=== PATIENT | male | born 1960 | race Caucasian/White ===

== ENCOUNTER 2018-10-30 05:26 | Observation (INO) | payer OTHER ==
[2018-10-30] MEDS ORDERED: Pantoprazole 40 MG VIAL ONE (05:42)
[2018-10-30] MEDS ORDERED: Ondansetron PF 4 MG/2 ML Vial ONE ×2 (05:47→15:39)
[2018-10-30 05:55] LABS: Hemoglobin 11.2 g/dL (14.0-18.0); Mean Corpuscular HGB CONC 33.8 g/dL (32.0-36.0); Mean Platelet Volume 6.4 fL (7.4-10.4); Platelet Count 223 thou/uL (130-400); RBC Distribution Width 12.7 % (11.5-14.5)
[2018-10-30 05:58] LABS: INR-International Normal Ratio 1.3; PTT 27.5 SEC (22.9-36.1); Prothrombin Time 16.2 SEC (12.0-14.7)
[2018-10-30 06:19] LABS: Band 3 % (5-11); Eosinophils 1 % (0-10); Lymphocytes 9 % (21-51); MDiff Complete? YES; Monocytes 15 % (0-10); Myelocyte 1 % (0-0); Neutrophil 71 % (42-75)
[2018-10-30 06:25] LABS: ALT (SGPT) 32 U/L (8-55); AST (SGOT) 50 U/L (5-34); Acetaminophen Less than 6.0 mcg/mL (10.0-30.0); Albumin 3.8 g/dL (3.5-5.0); Alcohol Less than 10 mg/dL (Less than 10); Alkaline Phosphatase 85 U/L (40-150); Anion Gap 20 mmol/L (10-20); BUN (Urea Nitrogen) 38 mg/dL (8.4-25.7); Bilirubin, Total 0.9 mg/dL (0.2-1.2); Calc. Creatinine Clearance 0 mL/min (70-130); Carbon Dioxide 23 mmol/L (22-29); Chloride 97 mmol/L (98-107); Estimated GFR-MDRD 62; Globulin 3.7 g/dL (2.4-3.5); Glucose 154 mg/dL (70-105); Potassium 4.2 mmol/L (3.5-5.1); Protein, Total 7.5 g/dL (6.0-8.3); Salicylate Less than 8.0 mg/dL (15.0-30.0); Sodium 136 mmol/L (136-145)
[2018-10-30 06:46] LABS: CKMB 2.2 ng/mL (0-6.6)
[2018-10-30] MEDS ORDERED: Ondansetron ODT 4 MG TAB PO PRN (08:56)
[2018-10-30] MEDS ORDERED: Calcium Carbonate 500 MG ChewTAB PO PRN (08:56)
[2018-10-30] MEDS ORDERED: Loratadine 10 MG TAB PO PRN (08:56)
[2018-10-30] MEDS ORDERED: HYDROcodone/Acetaminophen 5/325 mg Tablet PO PRN (08:56)
[2018-10-30] MEDS ORDERED: Bisacodyl 5 MG TAB PO PRN (08:56)
[2018-10-30] MEDS ORDERED: Diabetic Tussin 200 MG/10 ML UDCUP PO PRN (08:56)
[2018-10-30] MEDS ORDERED: Senokot S 8.6-50 MG TAB PO PRN (08:56)
[2018-10-30] MEDS ORDERED: Bisacodyl 10 MG SUPP PR PRN (08:56)
[2018-10-30] MEDS ORDERED: Artificial Tears 18 DROP/0.9 ML EA EYE PRN (08:56)
[2018-10-30] MEDS ORDERED: Loperamide HCl 2 MG CAP PO PRN (08:56)
[2018-10-30] MEDS ORDERED: Ondansetron PF 4 MG/2 ML Vial IVP PRN (08:56)
[2018-10-30] MEDS ORDERED: Acetaminophen 325 MG TAB PO PRN (08:56)
[2018-10-30] MEDS ORDERED: Cepastat Lozenges 1 LOZ PO PRN (08:56)
[2018-10-30] MEDS ORDERED: Eucerin (Mineral Oil/Petrolatum,White) 30 gm Jar TOP PRN (08:56)
[2018-10-30] MEDS ORDERED: Sodium Chloride 0.65% Nasal 44 ML BOT EA NARE PRN (08:56)
[2018-10-30] MEDS ORDERED: Zolpidem Tartrate 5 MG TAB PO PRN (08:56)
[2018-10-30] MEDS ORDERED: hydrALAZINE 20 MG/ML VIAL SLOW IVP PRN (08:56)
[2018-10-30] MEDS ORDERED: Pantoprazole 40 MG VIAL IVP SCH (09:00)
[2018-10-30] MEDS ORDERED: Lorazepam 2 MG/ML VIAL SLOW IVP PRN (09:02)
[2018-10-30 09:20] VITALS: BMI 25.9
[2018-10-30] MEDS: Nicotine 21 MG PATCH TD SCH (10:38)
[2018-10-30] MEDS: Multivitamins, Adult 10 ML, Folic Acid 1 MG, Thiamine HCl 100 MG in Dextrose 5 %-0.45 %... IV SCH (10:38)
--- NOTE | 2018-10-30 11:51 | HP ---
PRIMARY CARE PHYSICIAN: [facility]. REASON FOR ADMISSION: Acute upper GI bleed. HISTORY OF PRESENT ILLNESS: A 58-year-old male, who has underlying history of alcoholism. He drinks almost 12 beers everyday basis. He also smokes about 1-1/2 packs every day. 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 Yesterday night, while at work, he was drinking beer, and he was having vomiting of blood. Even though he was having vomiting of blood, he keeps continue to drink alcohol, and each time, he was having coffee-grounds emesis and subsequently, he had black tarry stool. He was feeling dizzy and lightheaded. He was feeling weak. The patient also had similar episode in the past, which he attributed to be due to bleeding from sinus and mouth. He denies any abdominal distention. He denies any fever or chills. He denies any fresh blood in the vomitus as well as fresh blood in the rectum. He denies any loss of consciousness. The patient never had any upper or lower endoscopic evaluation. The patient does report that he has family history of gastric cancer to his mother in her 50s. The patient took aspirin yesterday when he was having abdominal discomfort. He is not taking NSAID chronically, but he smokes marijuana every day. He denies any weight loss. REVIEW OF SYSTEMS: CONSTITUTIONAL: Negative for weight loss or gain, ability to conduct usual activities. SKIN: Negative for rash, itching. EYES: Negative for double vision, pain. ENT/MOUTH: Negative for nose bleeding, neck stiffness, pain, tenderness. CARDIOVASCULAR: Negative for palpitations, dyspnea on exertion, orthopnea. RESPIRATORY: Negative for shortness of breath, wheezing, cough, hemoptysis, fever or night sweats. GASTROINTESTINAL: Negative for poor appetite, abdominal pain, heartburn, nausea, vomiting, constipation, or diarrhea. GENITOURINARY: Negative for urgency, frequency, dysuria, nocturia. MUSCULOSKELETAL: Negative for pain, swelling. NEUROLOGIC/PSYCHIATRIC: Negative for anxiety, depression. ALLERGY/IMMUNOLOGIC: Negative for skin rash, bleeding tendency. Please see my HPI for pertinent positives and negative. All other review of systems reviewed and negative except as mentioned in HPI. PAST MEDICAL HISTORY: Alcoholism, chronic anemia, history of prostatitis, and history of gingivitis. PAST SURGICAL HISTORY: Tonsillectomy. PAST PSYCHIATRIC HISTORY: Anxiety, depression, and bipolar disorder. SOCIAL HISTORY: The patient drinks 12 beers every day. He smokes 1-1/2 packs every day. He also abuses marijuana. FAMILY HISTORY: Mother had a gastric cancer in her 50s. No family history of coronary artery disease or stroke. ALLERGIES: NO KNOWN DRUG ALLERGIES. CURRENT HOME MEDICATIONS: The patient is not taking any prescribed or non-prescribed medication. EMERGENCY ROOM COURSE: The patient is given Protonix, Zofran, and IV fluid. PHYSICAL EXAMINATION: VITAL SIGNS: Currently, blood pressure of 96/67, pulse 120, respiratory rate 18, temperature 99.0, and saturation 100% on room air. Weight 65.7 kg. GENERAL: The patient is currently alert and awake, in no obvious acute distress. HEENT: Head; normocephalic and atraumatic. Eyes; pupils are round and reactive to light. Extraocular muscle intact. ENT; oropharynx within normal limits. Moist mucous membranes. No oral lesion. No pharyngeal erythema. No exudate. Pale mucous membranes. NECK: Supple. No JVD. No thyromegaly. No carotid bruit. LUNGS: Clear to auscultation without any rhonchi or rales. CARDIAC: S1 and S2, regular without any murmur. ABDOMEN: Soft. Discomfort noted in the epigastric region. No peritoneal sign. No guarding. No rigidity. No rebound. RECTAL: Done in the emergency room showed melenic stool. BACK: Unremarkable. No CVA tenderness. EXTREMITIES: Upper extremities; passive movement of all joints is normal. Lower extremities, no edema. Good distal pulsation. SKIN: No skin rash. HEMATOLOGICAL SYSTEM: No lymphadenopathy. PSYCHIATRIC: Normal affect. SIGNIFICANT LABORATORY DATA: EKG showing normal sinus rhythm, within normal limit. CBC; WBC 11.0, hemoglobin 11.2, MCV 104, and platelet 223. INR 1.3. BMP; sodium 136, potassium 4.2, chloride 97, carbon dioxide 23, BUN 38, creatinine 1.20, glucose 154, and calcium 10.0. LFT; AST 50, ALT 32, alkaline phosphatase 85, CK-MB 2.2, troponin I 0.085, then 0.080. Serum drug levels negative. Stool for occult blood positive. ASSESSMENT AND PLAN: 1. Acute upper gastrointestinal bleed. The patient has coffee-grounds emesis and black tarry stool. He has significant alcohol abuse history suspecting alcoholic gastritis versus Roz-Pena tear versus peptic ulcer disease. At this point, the patient will be treated with Protonix 40 mg IV b.i.d. We will keep him n.p.o., and we will consult auctioneer art. The patient will need upper endoscopic evaluation. The patient is given counseling to avoid NSAID and alcohol abuse as well as smoking abuse. We will monitor H and H today and tomorrow. We will repeat CBC. 2. Alcoholism. The patient has abnormal LFT. We will do abdominal ultrasound to rule out any cirrhotic liver. We will also start banana bag 125 mL/h. We will check magnesium and phosphorus along with routine labs tomorrow. We will watch for any withdrawal symptoms. 3. Tobacco and alcohol abuse. We will start banana bag while in the hospital. Upon discharge, we will prescribe folic acid, vitamin B12, and thiamine. We will also provide nicotine patch while in hospital. Counseling is given to avoid tobacco and alcohol product. 4. Elevated troponin, likely due to demand ischemia. We will do serial cardiac enzyme x3 and monitor on telemetry floor. The patient is not a candidate for any aspirin therapy because of bleeding. 5. Macrocytic anemia, likely due to alcohol abuse. We will start folic acid and vitamin B12 therapy upon discharge. 6. Deep venous thrombosis prophylaxis, SCD boots only. No Lovenox because of gastrointestinal bleed. 7. Gastrointestinal prophylaxis, Protonix 40 mg IV b.i.d. CODE STATUS: The patient is full code. The patient does not have any surrogate decision maker. DISPOSITION PLAN: Based on clinical course, we are expecting the patient's stay in hospital 24 to 48 hours. At this point, we have started on observation status, but if needs to be changed, then we will change his status accordingly. Plan of care discussed with the patient in detail. Job ID: [id number]
--- NOTE | 2018-10-30 11:58 | ULT ---
RIGHT UPPER QUADRANT ULTRASOUND: 10/30/2018 HISTORY: Alcoholism. COMPARISON: None. TECHNIQUE: Multiplanar osullivan-scale sonographic imaging of the right upper quadrant is provided. FINDINGS: The imaged pancreas is unremarkable; however, the tail and head of the pancreas are obscured by bowel gas. The hepatic parenchyma is heterogeneous and echogenic. No focal liver lesion is seen. There is subtle irregularity involving the peripheral contour of the liver, which could suggest cirrhotic c hange. The right kidney measures 10.2 cm in craniocaudal dimension and demonstrates no evidence for stone, h ydronephrosis, or mass lesion. The common bile duct measures 3 mm, within normal limits. No gallbla dder wall thickening or pericholecystic fluid. No gallstones. The sonographic Ny sign is negati ve. IMPRESSION: Heterogeneity of the hepatic parenchyma, which may signify cirrhotic change. This could be better as sessed via CT or MRI. No acute findings are noted. POS: CR
[2018-10-30 12:10] LABS: Hemoglobin 9.3 g/dL (14.0-18.0)
[2018-10-30 12:32] LABS: Troponin I 0.054 ng/mL (< 0.028)
--- NOTE | 2018-10-30 15:20 | CON ---
DATE OF CONSULTATION: 10/30/2018 REASON: Vomiting blood. HISTORY OF PRESENT ILLNESS: Mr. Shea is a 58-year-old man who had sudden onset of blackish emesis at 7 p.m. last night. He continues to have 5 further episode of black emesis. He denies having seen any red blood. At 7 o'clock this morning, he did have black tarry stools. He did have a brief episode of upper epigastric discomfort. However, there is no prolonged abdominal pain. He denies having any lightheadedness, dizziness, or orthostatic symptoms. He denies having history of any peptic ulcer disease before. There is no history of NSAID usage. He does consume up to 15 beers daily. He takes occasional aspirin for headaches. Currently, his vitals are stable. He does not have any other GI complaints. PAST MEDICAL HISTORY: 1. No underlying medical illness, denies high blood pressure, diabetes, or heart disease. 2. Status post tonsillectomy. ALLERGIES: NONE. MEDICATIONS: At home, no prescription medication. SOCIAL HISTORY: The patient is single. 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 He consumes up to 15 beers a day for the last 6 years. He does smoke a pack and a half cigarettes daily. FAMILY HISTORY: Mother with gastric cancer at the age of 57. No other liver disease or GI problem. REVIEW OF SYSTEMS: A 10-point review of systems did not show any other pertinent positives or negatives. PHYSICAL EXAMINATION: VITAL SIGNS: Temperature is 99.3, blood pressure 135/65, and pulse of 94. GENERAL: He is alert, conversant, no distress. HEENT: Shows anicteric sclerae. Oropharynx clear, but poor dentition. NECK: Supple. CV: Shows normal S1, S2. Regular rate and rhythm. CHEST: Shows breath sounds. ABDOMEN: Protuberant, but no obvious fluid wave. There is no palpable mass or organomegaly. He has active bowel sounds. EXTREMITIES: Show no edema. LABORATORY: WBCs 11.0; hemoglobin 11.2 at 5 o'clock this morning, now at 9.3; and platelet count of 223. Sodium 136, potassium 4.2, chloride 97, CO2 of 23, creatinine 1.20, BUN of 38, bilirubin 0.9, AST of 50, ALT of 32, alkaline phosphatase 85. INR of 1.3, PTT of 27.5. DIAGNOSTIC DATA: Abdominal ultrasound performed, showed heterogeneous parenchyma and subtle irregularity involving the surface contour of the liver suggesting possible cirrhosis. No ascites. ASSESSMENT: The patient presented with evidence of upper gastrointestinal bleed characterized as coffee-ground emesis and melenic stools. Blood count does show a drop in his hemoglobin, but he remains hemodynamically stable. The patient does have history of heavy alcohol consumption with ultrasound, suggesting possible cirrhosis. Certainly, variceal bleeding is in the differential including peptic ulcer disease or Roz-Pena tear. RECOMMENDATIONS: 1. Continue with pantoprazole. 2. Diagnostic upper endoscopy to elucidate source of bleeding control if necessary. 3. Further recommendation pending endoscopic finding. Job ID: [id number]
[2018-10-30] MEDS ORDERED: PHENYLEPHRINE-NS 100 MCG/ML 10 ML SYRINGE ONE (15:39)
[2018-10-30] MEDS ORDERED: Lidocaine 1% PF 5 ML VIAL ONE (15:39)
[2018-10-30] MEDS ORDERED: PROPOFOL 200 MG/20 ML VIAL ONE (15:39)
--- NOTE | 2018-10-30 22:54 | OP ---
DATE OF PROCEDURE: 10/30/2018 PROCEDURE PERFORMED: Esophagogastroduodenoscopy. PREMEDICATION: Given by Anesthesiology Department. PREPROCEDURE DIAGNOSIS: History of coffee-grounds emesis and melena. POSTPROCEDURE DIAGNOSES: 1. A 0.5 cm Roz-Pena tear with clean crater, no bleeding. 2. Portal gastropathy. 3. Grade 1 lower esophageal varices with no stigmata of bleeding. DESCRIPTION OF PROCEDURE: Written consents were obtained prior to procedure. After adequate sedation, forward-viewing endoscope was advanced down the stomach under direct vision to the second portion of duodenum. The duodenum and the bulb appeared normal. The pylorus was patent. The gastric antrum, body, fundus, and cardia all appeared normal. There was diffuse hypertensive portal gastropathy seen. Retroflexion was normal without any gastric varices. There was no source of bleeding seen in the stomach. There was a green bile present. The GE junction was located at 40 cm. There was a less than 1 cm Roz-Pena tear without any active bleeding seen. There was no adherent clot or any vessels seen. There was grade 1 esophageal varices that flattened with insufflation. There was no stigmata of variceal bleeding. The stomach was then decompressed, the instrument was then fully removed. The patient tolerated the procedure well. ASSESSMENT: 1. Healing short Roz-Pena tear, GE junction without any evidence of bleeding. 2. Portal gastropathy with grade 1 esophageal varices without stigmata of bleeding suggestive of cirrhosis. RECOMMENDATION: 1. Resume diet. 2. Nadolol 40 mg p.o. daily, titrate to heart rate. 3. The patient can be discharged to home in a.m. with outpatient followup if he continues to do well. Job ID: [id number]
[2018-10-31 05:59] LABS: ALT (SGPT) 53 U/L (8-55); AST (SGOT) 93 U/L (5-34); Albumin 3.1 g/dL (3.5-5.0); Alkaline Phosphatase 61 U/L (40-150); Anion Gap 11 mmol/L (10-20); BUN (Urea Nitrogen) 18 mg/dL (8.4-25.7); Bilirubin, Total 0.7 mg/dL (0.2-1.2); Calc. Creatinine Clearance 101 mL/min (70-130); Calcium 8.7 mg/dL (7.8-10.44); Carbon Dioxide 23 mmol/L (22-29); Chloride 108 mmol/L (98-107); Estimated GFR-MDRD Greater than 90; Globulin 2.8 g/dL (2.4-3.5); Glucose 104 mg/dL (70-105); Potassium 4.1 mmol/L (3.5-5.1); Protein, Total 5.9 g/dL (6.0-8.3); Sodium 138 mmol/L (136-145)
[2018-10-31 06:16] LABS: HBCM Index 0.05 S/CO (0-0.79); HBSAg Index 0.28 S/CO (0-0.99); Hep A IgM AB Non-Reactive (NonReactive); Hep A IgM S/CO 0.09 S/CO (0-0.79); Hep B Surf Ag Non-Reactive S/CO (NonReactive); Hep C IgG Ab Non-Reactive (NonReactive); Hep C Index 0.21 S/CO (0-0.79); Hepatitis B Core IgM Abs Non-Reactive (NonReactive)
[2018-10-31 06:48] LABS: Mean Corpuscular HGB CONC 33.5 g/dL (32.0-36.0); Mean Corpuscular Hemoglobin 36.2 pg (27.0-31.0); Platelet Count 156 thou/uL (130-400); RBC Distribution Width 12.9 % (11.5-14.5); Red Blood Cell (RBC) Count 2.48 mill/uL (4.70-6.10)
[2018-10-31 06:58] LABS: Band 4 % (5-11); Eosinophils 3 % (0-10); Lymphocytes 28 % (21-51); Macrocytosis SLIGHT = 6-15 cells (100X) (0-5/hpf); Monocytes 13 % (0-10); Neutrophil 52 % (42-75)
[2018-10-31 06:59] LABS: MDiff Complete? YES
[2018-10-31] MEDS: Multivitamins, Adult 10 ML, Folic Acid 1 MG, Thiamine HCl 100 MG in Dextrose 5 %-0.45 %... IV SCH (08:59)
[2018-10-31] MEDS ORDERED: Nadolol 40 MG TAB PO SCH (09:00)
[2018-10-31] MEDS: Nicotine 21 MG PATCH TD SCH (09:02)
[2018-10-31 09:12] VITALS: BP 102/58; TEMP 98.1
--- NOTE | 2018-10-31 11:48 | DIS ---
DATE OF ADMISSION: 10/30/2018 DATE OF DISCHARGE: 10/31/2018 PRIMARY CARE PHYSICIAN: [facility] Call admission. DISCHARGE DISPOSITION: Home. PRIMARY DISCHARGE DIAGNOSES: 1. Acute upper GI bleed. 2. Anemia due to acute blood loss. 3. Demand ischemia. 4. Portal hypertensive gastropathy. 5. New diagnosis of alcoholic cirrhosis of liver. SECONDARY DISCHARGE DIAGNOSES: 1. Alcoholism. 2. Tobacco abuse. 3. Cannabis abuse. PRIMARY PROCEDURE/OPERATION: Upper endoscopy showed Roz-Pena tear and portal hypertensive gastropathy. RADIOLOGICAL INVESTIGATION: Ultrasound showed cirrhotic liver. SIGNIFICANT LABORATORY DATA: WBC 9.0, hemoglobin 9.0, platelet 156. INR 1.3. Sodium 138, creatinine 0.83, troponin 0.054, AST 93. Serum drug screen negative. Hepatitis profile negative. Stool for occult blood positive. DISCHARGE MEDICATION: 1. Folic acid 1 mg p.o. daily. 2. Vitamin B12 1000 mcg p.o. daily. 3. Multivitamin one tablet p.o. daily. 4. Thiamine 100 mg p.o. daily. 5. Protonix 40 mg p.o. daily. 6. Corgard 40 mg p.o. daily. CONTRAINDICATION: None. CODE STATUS: Full code. INPATIENT CONSULT: Dr. Ford was consulted while in hospital, who did upper endoscopy. TEST RESULTS PENDING ON DISCHARGE: None. ALLERGIES: NO KNOWN DRUG ALLERGIES. DISCHARGE PLAN: Posthospital, the patient will follow up with primary care physician and Dr. Ford as instructed. HOSPITAL COURSE: A 58-year-old male, who was admitted by me yesterday. Please see my HPI for further details. He was having recurrent and several episodes of small amount of blood, coffee-ground in vomiting, and black tarry stool. He was hemodynamically stable on admission. We admitted as observation status. We consulted desk interviewer and they did upper endoscopy and found with Roz-Pena tear as well as portal hypertensive gastropathy. While in hospital, we provided banana bag and his H and H remained overall okay. He did not require any blood transfusion. We provided the patient education about avoidance of alcohol, tobacco, and cannabis abuse. Healthy lifestyle measure discussed with the patient. His troponin was elevated, which was related to demand ischemia. His ultrasound is consistent with early-onset alcoholic cirrhosis and that is why we started Corgard on discharge. The patient is seen and examined at bedside today. All review of systems reviewed with him and are negative. His vitals are stable. His examination is normal. Job ID: [id number]
--- NOTE | 2018-10-31 15:00 | PRG ---
DATE OF SERVICE: 10/31/2018 SUBJECTIVE: The patient feels fine. He denies any nausea, vomiting, or abdominal pain. No evidence of bleeding overnight. PHYSICAL EXAMINATION: VITAL SIGNS: Temperature is 98.1, blood pressure 102/58, pulse of 80. GENERAL: He is alert, sitting up in bed, conversant, in no distress. HEENT: Shows anicteric sclerae. Oropharynx clear. NECK: Supple. CV: Shows normal S1, S2. Regular rate and rhythm. CHEST: Shows a breath sounds. ABDOMEN: Soft, mildly protuberant, but no tympany or distention. He has active bowel sounds. Nontender. EXTREMITIES: Shows no edema. LABORATORY DATA: WBC is 9.0, hemoglobin 9.0, and platelet count of 156. Electrolytes within normal range. Creatinine 0.8, bilirubin is 0.7, AST of 93, ALT of 53. Hepatitis B and hepatitis C antibody negative. ASSESSMENT: 1. Cirrhosis by ultrasound morphology and portal hypertensive changes on EGD. Alcohol induces the most likely etiology. 2. Portal hypertension with grade 1 esophageal varices noted, started on beta meg. 3. Status post upper gastrointestinal bleed from small Roz-Pena tear. RECOMMENDATIONS: 1. The patient can be discharged to home. 2. Continue nadolol 40 mg p.o. daily. 3. Follow up in GI clinic in 1 month. Job ID: [id number]
[2018-11-01] MEDS ORDERED: Nadolol 40 MG TAB PO SCH (09:00)
== END 2018-10-31 11:34 | disposition home or self-care (01) ==
LOC: ERS 05:26 → 2SW 08:34
PROVIDERS: ADMIT Hospitalist; ATTEND Hospitalist
PROC: 0DJ08ZZ Inspection of Upper Intestinal Tract, Via Natural or Artificial Opening Endoscopic (ICD-10-PCS; principal; 2018-10-31)
DX: K22.6 Gastro-esophageal laceration-hemorrhage syndrome (principal); D62 Acute posthemorrhagic anemia; K70.30 Alcoholic cirrhosis of liver without ascites; I85.10 Secondary esophageal varices without bleeding; K31.89 Other diseases of stomach and duodenum; I24.8 Other forms of acute ischemic heart disease; K76.6 Portal hypertension; F17.290 Nicotine dependence, other tobacco product, uncomplicated
CPT/HCPCS: 36415; 76705; 80053; 80074; 80307; 82274; 82553; 84484; 85025; 85610; 85730; 86850; 86900; 86901; 93005; 96361; 96365; 96366; 96374; 96375; 96376; C9113; G0378; J2001; J2405; J2704; J3411; J7042

== ENCOUNTER 2020-02-19 03:51 | Emergency (ER) | payer OTHER ==
[2020-02-19 04:39] LABS: INR-International Normal Ratio 1.4; PTT 31.5 sec (22.9-36.1); Prothrombin Time 16.7 sec (12.0-14.7)
[2020-02-19 04:46] LABS: Bacteria/HPF None Seen HPF (None Seen); Bilirubin Negative (Negative); Blood, Urine Negative (Negative); Clarity Clear (Clear); Glucose, Urine (Dipstick) Normal (Negative); Leukocyte Negative Leu/uL (Negative); Nitrite Negative (Negative); Protein, Urine (Dipstick) 30 mg/dL (Neg-Trace); RBC/HPF 0-3 HPF (0-3); WBC/HPF 0-3 HPF (0-3)
[2020-02-19 04:52] LABS: ALT (SGPT) 21 U/L (8-55); AST (SGOT) 53 U/L (5-34); Albumin 3.9 g/dL (3.5-5.0); Alkaline Phosphatase 130 U/L (40-110); Anion Gap 13 mmol/L (10-20); BUN (Urea Nitrogen) 16 mg/dL (8.4-25.7); Bilirubin, Total 1.2 mg/dL (0.2-1.2); Calc. Creatinine Clearance 0 mL/min (70-130); Calcium 9.1 mg/dL (7.8-10.44); Carbon Dioxide 28 mmol/L (22-29); Chloride 102 mmol/L (98-107); Estimated GFR-MDRD 84; Globulin 4.7 g/dL (2.4-3.5); Glucose 137 mg/dL (70-105); Lipase 15 U/L (8-78); Potassium 3.9 mmol/L (3.5-5.1); Protein, Total 8.6 g/dL (6.0-8.3); Sodium 139 mmol/L (136-145)
[2020-02-19 05:12] LABS: Hemoglobin 11.8 g/dL (14.0-18.0); Mean Corpuscular HGB CONC 32.3 g/dL (32.0-36.0); Mean Corpuscular Hemoglobin 31.4 pg (27.0-31.0); Mean Corpuscular Volume 97.2 fL (78.0-98.0); Mean Platelet Volume 6.9 fL (7.4-10.4); Platelet Count 181 thou/uL (130-400); RBC Distribution Width 14.2 % (11.5-14.5); Red Blood Cell (RBC) Count 3.76 mill/uL (4.70-6.10); White Blood Cell (WBC) Count 7.4 thou/uL (4.8-10.8)
[2020-02-19 05:32] LABS: Band 15 % (5-11); Lymphocytes 15 % (21-51); MDiff Complete? YES; Monocytes 18 % (0-10); Neutrophil 52 % (42-75)
[2020-02-19] MEDS ORDERED: Pantoprazole 40 MG VIAL ONE (05:45)
--- NOTE | 2020-02-19 07:31 | RAD ---
Exam: Chest one view HISTORY:Hematemesis Comparison: None FINDINGS: Cardiac silhouette: Normal Aorta: Atherosclerosis Pulmonary vessels: Normal Costophrenic angles: Clear LUNGS: No masses or consolidation. Pneumothorax: None Osseous abnormalities: None IMPRESSION: No acute cardiopulmonary process.
--- NOTE | 2020-02-19 07:53 | CT ---
PRELIMINARY REPORT/[facility]/EMERGENCY AFTER HOURS PROCEDURE EXAM: CT Abdomen and Pelvis with Intravenous Contrast CLINICAL HISTORY: PT REPORTS VOMITING BLOOD SINCE LAST NIGHT. PT REPORTS 3 EPISODES OF BLACK HEMATEME SIS. PT REPORTS THINKING THAT IT WAS CAUSED BY HIM TAKING TYLENOL AND IBUPROFEN. PT REPORTS MILD ABD PAIN, BLACK DIARRHEA, AND HEADACHE. TECHNIQUE: Axial computed tomography images of the abdomen and pelvis with intravenous contrast. CONTRAST: With; ISOVUE 370,100mL COMPARISON: None provided. FINDINGS: LUNG BASES: No basilar airspace consolidation or pleural effusion. LIVER: Cirrhotic.. GALLBLADDER AND BILE DUCTS: Unremarkable. No calcified stone. No ductal dilation. PANCREAS: Unremarkable. SPLEEN: Unremarkable. ADRENAL GLANDS: Unremarkable. KIDNEYS, URETERS, AND BLADDER: Unremarkable. No hydronephrosis or nephrolithiasis. No ureteral or eros dder calculi. STOMACH AND BOWEL: Abnormal thickening of the ascending and transverse colon as well as the rectum. A reas of small bowel thickening also noted. APPENDIX: No CT evidence for appendicitis. PERITONEUM: Hypervascular mesentery, mild free fluid in the right hemiabdomen. No free air. LYMPH NODES: No lymphadenopathy. REPRODUCTIVE: Unremarkable as visualized. VASCULATURE: No aortic aneurysm. BONES: No fracture or suspicious osseous abnormality. ABDOMINAL WALL AND SOFT TISSUES: Unremarkable. IMPRESSION: Abnormal thickening of the ascending and transverse colon as well as the rectum. Small deysi wel involvment also noted. Considerations include infectious versus inflammatory (such as Crohn's/ UC ) colitis. Cirrhosis, mild ascites. ELECTRONICALLY SIGNED BY: Fiorella Valladares MD Feb 19, 2020 5:13:27 AM CDT FINAL REPORT EMERGENT AFTER HOURS CT OF THE ABDOMEN AND PELVIS WITH CONTRAST: FINDINGS/IMPRESSION: I agree with the findings and impression given in the preliminary report per [facility] physici an. There is apparent diffuse thickening along the colon. However, the colon is a decompressed stat e and this could be artifactual. There is stranding change in the root of the mesentery extending in to the right lower quadrant of the abdomen. This inflammatory change could be secondary to a colitis /enteritis. POS: EAA
[2020-02-19] MEDS ORDERED: Iopamidol-370 76% 500 ML 1 ML ONE (13:01)
== END 2020-02-19 06:00 | disposition home or self-care (01) ==
LOC: ERS 03:51
DX: K29.71 Gastritis, unspecified, with bleeding (principal); F17.210 Nicotine dependence, cigarettes, uncomplicated
CPT/HCPCS: 71045; 74177; 80053; 81003; 81015; 83690; 85025; 85610; 85730; 96374; C9113; Q9967

== ENCOUNTER 2022-09-28 11:13 | Observation (INO) | payer SELFPAY ==
[2022-09-28 13:10] LABS: Hemoglobin 14.9 g/dL (14.0-18.0); Mean Corpuscular HGB CONC 32.1 g/dL (32.0-36.0); Mean Corpuscular Hemoglobin 31.1 pg (27.0-31.0); Mean Corpuscular Volume 96.9 fl (78.0-98.0); Mean Platelet Volume 6.4 fL (7.4-10.4); Platelet Count 273 10x3/uL (130-400); RBC Distribution Width 13.2 % (11.5-14.5); White Blood Cell (WBC) Count 7.7 10x3/uL (4.8-10.8)
[2022-09-28 13:26] LABS: Band 3 % (5-11); Lymphocytes 16 % (21-51); MDiff Complete? YES; Monocytes 15 % (0-10); Neutrophil 65 % (42-75); Platelet Morphology Comment Appears Adequate; RBC Morphology Normal
[2022-09-28 13:31] LABS: Bacteria/HPF None Seen HPF (None Seen); Bilirubin Negative (Negative); Blood, Urine Negative (Negative); Clarity Clear (Clear); Glucose, Urine (Dipstick) Normal (Negative); Ketone, Urine Negative (Negative); Leukocyte 75 Leu/uL (Negative); Nitrite Negative (Negative); Protein, Urine (Dipstick) Negative (Neg-Trace); RBC/HPF 0-3 HPF (0-3); Specific Gravity, Urine 1.015 (1.002-1.036); Squamous Epithelial 0-3 HPF (0-3); Urobilinogen 6 mg/dL (Less than 2); WBC/HPF 0-3 HPF (0-3); pH, Urine 6.5 (5.0-9.0)
[2022-09-28 13:33] LABS: ALT (SGPT) 13 U/L (8-55); AST (SGOT) 28 U/L (5-34); Albumin 3.4 g/dL (3.4-4.8); Alkaline Phosphatase 136 U/L (40-110); Anion Gap 10 mmol/L (10-20); BUN (Urea Nitrogen) 9 mg/dL (8.4-25.7); Bilirubin, Total 0.8 mg/dL (0.2-1.2); Calc. Creatinine Clearance 0 mL/min (70-130); Calcium 9.2 mg/dL (7.8-10.44); Carbon Dioxide 27 mmol/L (23-31); Chloride 105 mmol/L (98-107); Estimated GFR 102; Globulin 4.7 g/dL (2.4-3.5); Glucose 103 mg/dL (80-115); Lipase 24 U/L (8-78); Potassium 4.7 mmol/L (3.5-5.1); Protein, Total 8.1 g/dL (5.8-8.1); Sodium 137 mmol/L (136-145)
[2022-09-28] MEDS ORDERED: Iopamidol-370 76% 500 ML 1 ML ONE (15:11)
[2022-09-28] MEDS ORDERED: Lidocaine 1% w/Epinephrine 1:100K 20 ML VIAL ONE (16:41)
[2022-09-28] MEDS ORDERED: Acetaminophen 325 MG TAB PO PRN (17:22)
[2022-09-28] MEDS ORDERED: Ondansetron PF 4 MG/2 ML Vial IVP PRN (17:22)
[2022-09-28] MEDS ORDERED: Ondansetron ODT 4 MG TAB PO PRN ×2 (17:22→17:27)
[2022-09-28] MEDS ORDERED: Lorazepam 1 MG TAB PO PRN (17:27)
[2022-09-28] MEDS ORDERED: Lorazepam 2 MG/ML VIAL IM PRN (17:27)
[2022-09-28] MEDS ORDERED: Electrolyte Replacement Protocol 1 EACH FS SCH (17:30)
[2022-09-28] MEDS ORDERED: Nicotine 14 MG PATCH TD SCH (17:30)
[2022-09-28] MEDS ORDERED: Folic Acid 1 MG TAB PO SCH (18:00)
[2022-09-28] MEDS ORDERED: Multivit, Therapeutic 1 TAB PO SCH (18:00)
[2022-09-28] MEDS ORDERED: Thiamine HCl 200 MG/2 ML VIAL SLOW IVP SCH (18:00)
[2022-09-28 18:04] LABS: Magnesium 2.1 mg/dL (1.6-2.6); Phosphorus 3.1 mg/dL (2.3-4.7)
[2022-09-28 18:25] VITALS: BMI 24.3
[2022-09-28 18:39] VITALS: TEMP 98.3
[2022-09-28 20:30] LABS: SARS-CoV-2 NAA Rapid Test Not Detected (NotDetected)
[2022-09-28] MEDS ORDERED: Nicotine 14 MG PATCH ONE (21:11)
[2022-09-28] MEDS ORDERED: Folic Acid 1 MG TAB ONE (21:11)
[2022-09-28] MEDS ORDERED: Lorazepam 1 MG TAB ONE (21:11)
[2022-09-28] MEDS: Lorazepam 1 MG TAB PO SCH (21:19)
[2022-09-28 21:28] VITALS: BP 149/90
[2022-09-29] MEDS ORDERED: LORazepam 2 MG/ML SYR.(CARPUJECT) ONE (00:46)
[2022-09-29] MEDS ORDERED: Lorazepam 1 MG TAB ONE ×2 (03:19→09:40)
[2022-09-29] MEDS: Lorazepam 1 MG TAB PO SCH ×2 (03:30→09:42)
[2022-09-29 07:26] LABS: Mean Corpuscular HGB CONC 31.9 g/dL (32.0-36.0); Mean Corpuscular Hemoglobin 31.6 pg (27.0-31.0); Mean Platelet Volume 6.5 fL (7.4-10.4); Platelet Count 232 10x3/uL (130-400); RBC Distribution Width 13.2 % (11.5-14.5); Red Blood Cell (RBC) Count 4.44 mill/uL (4.70-6.10); White Blood Cell (WBC) Count 6.7 10x3/uL (4.8-10.8)
[2022-09-29 07:28] LABS: Anion Gap 13 mmol/L (10-20); BUN (Urea Nitrogen) 8 mg/dL (8.4-25.7); Calc. Creatinine Clearance 113 mL/min (70-130); Calcium 8.9 mg/dL (7.8-10.44); Carbon Dioxide 16 mmol/L (23-31); Chloride 106 mmol/L (98-107); Estimated GFR 107; Glucose 64 mg/dL (80-115); Sodium 131 mmol/L (136-145)
[2022-09-29 08:17] LABS: Band 1 % (5-11); Eosinophils 5 % (0-10); Lymphocytes 21 % (21-51); MDiff Complete? YES; Monocytes 17 % (0-10); Neutrophil 56 % (42-75); RBC Morphology Normal
[2022-09-29] MEDS ORDERED: Nadolol 40 MG TAB PO SCH (09:00)
[2022-09-29] MEDS ORDERED: Pantoprazole 40 MG VIAL IVP SCH (09:00)
[2022-09-29] MEDS ORDERED: Folic Acid 1 MG TAB PO SCH (09:00)
[2022-09-29] MEDS ORDERED: Multivit, Therapeutic 1 TAB PO SCH (09:00)
[2022-09-29] MEDS ORDERED: Sodium Bicarbonate 2.5 MEQ/5 ML VIAL ONE (09:20)
[2022-09-29] MEDS ORDERED: Lidocaine 1% PF 5 ML VIAL ONE (09:20)
[2022-09-29] MEDS ORDERED: Folic Acid 1 MG TAB ONE (09:39)
[2022-09-29] MEDS ORDERED: Pantoprazole 40 MG VIAL ONE (09:39)
[2022-09-29 10:53] LABS: INR-International Normal Ratio 1.3; Prothrombin Time 16.5 sec (12.0-14.7)
[2022-09-29 11:13] LABS: Syphilis Antibody Nonreactive (Nonreactive)
[2022-09-29 12:21] LABS: RBC Count-Automated (BF) 128 /cu.mm; WBC/Nucleated-Auto (BF) 325 /cu.mm
[2022-09-29 12:23] LABS: BF Color Yellow; Body Fluid Source Ascites Body Fluid; Clarity Hazy (Clear); Tube # EDTA
[2022-09-29 12:53] LABS: BF Segmented Neutrophils 31 %; Cell Count Non Hematic 55 %; Lymphocytes 14 %
[2022-09-29] MEDS ORDERED: Lorazepam 1 MG TAB PO PRN (17:27)
[2022-09-30] MEDS ORDERED: Lorazepam 1 MG TAB PO PRN (17:27)
[2022-09-30] MEDS ORDERED: Lorazepam 0.5 MG TAB PO SCH (18:00)
[2022-10-01] MEDS ORDERED: Thiamine 100 MG TAB PO SCH (09:00)
[2022-10-01] MEDS ORDERED: Lorazepam 0.5 MG TAB PO PRN (17:27)
== END 2022-09-29 15:18 | disposition home or self-care (01) ==
LOC: ERS 11:13 → ERHOLD 17:25
PROVIDERS: ADMIT Internal Medicine; ATTEND Internal Medicine
PROC: 0W9G3ZX Drainage of Peritoneal Cavity, Percutaneous Approach, Diagnostic (ICD-10-PCS; principal; 2022-09-29)
DX: K70.31 Alcoholic cirrhosis of liver with ascites (principal); K08.9 Disorder of teeth and supporting structures, unspecified; F17.210 Nicotine dependence, cigarettes, uncomplicated; F10.20 Alcohol dependence, uncomplicated; F12.10 Cannabis abuse, uncomplicated; Z59.01 Sheltered homelessness; Z20.822 Contact with and (suspected) exposure to COVID-19
CPT/HCPCS: 36415; 49083; 74177; 80048; 80053; 81003; 81015; 82945; 83690; 83735; 84100; 84157; 85025; 85060; 85610; 85730; 86780; 87070; 87205; 88112; 88305; 89051; C9113; J2060; J3411; Q9967; U0002

== ENCOUNTER 2022-10-19 17:20 | Emergency (ER) | payer SELFPAY ==
[2022-10-19 18:51] LABS: #Basophils 0.1 thou/uL (0.0-0.2); #Eosinphils 0.1 thou/uL (0.0-0.7); #Lymphocytes 1.3 thou/uL (1.20-3.40); #Monocytes 1.1 thou/uL (0.11-0.59); #Neutrophils 6.1 thou/uL (1.40-6.50); %Basophils 1.2 % (0.0-1.0); %Eosinophils 1.6 % (0.0-10.0); %Lymphocytes 14.5 % (21.0-51.0); %Monocytes 12.4 % (0.0-10.0); %Neutrophils 70.2 % (42.0-75.0); Hemoglobin 13.9 g/dL (14.0-18.0); Mean Corpuscular HGB CONC 32.5 g/dL (32.0-36.0); Mean Corpuscular Hemoglobin 31.1 pg (27.0-31.0); Mean Corpuscular Volume 95.9 fl (78.0-98.0); Mean Platelet Volume 6.2 fL (7.4-10.4); Platelet Count 290 10x3/uL (130-400); RBC Distribution Width 13.4 % (11.5-14.5); Red Blood Cell (RBC) Count 4.48 mill/uL (4.70-6.10); White Blood Cell (WBC) Count 8.7 10x3/uL (4.8-10.8)
[2022-10-19 19:02] LABS: INR-International Normal Ratio 1.1; Prothrombin Time 15.1 sec (12.0-14.7)
[2022-10-19 19:03] LABS: PTT 32.9 sec (22.9-36.1)
[2022-10-19 20:48] LABS: RBC Count-Automated (BF) 0 /cu.mm; WBC/Nucleated-Auto (BF) 174 /cu.mm
[2022-10-19 21:43] LABS: Body Fluid Source Ascites Body Fluid
[2022-10-19 21:44] LABS: BF Color Colorless; Clarity Clear (Clear); Tube # EDTA
[2022-10-19 21:49] LABS: BF Segmented Neutrophils 18 %; Cell Count Non Hematic 61 %; Lymphocytes 21 %
== END 2022-10-19 20:22 | disposition home or self-care (01) ==
LOC: ERS 17:20
DX: R18.8 Other ascites (principal); F17.210 Nicotine dependence, cigarettes, uncomplicated
CPT/HCPCS: 36415; 49083; 82945; 85025; 85060; 85610; 85730; 87070; 87205; 89051

== ENCOUNTER 2022-10-19 23:31 | Emergency (ER) | payer SELFPAY | END 2022-10-20 03:20 | disposition home or self-care (01) | LOC: ERS 23:31 | DX: K91.89 Other postprocedural complications and disorders of digestive system (principal); F17.210 Nicotine dependence, cigarettes, uncomplicated | CPT/HCPCS: 99283 ==

== ENCOUNTER 2022-11-02 10:28 | Emergency (ER) | payer SELFPAY ==
[2022-11-02 11:45] LABS: #Basophils 0.1 thou/uL (0.0-0.2); #Eosinphils 0.1 thou/uL (0.0-0.7); #Monocytes 0.8 thou/uL (0.11-0.59); #Neutrophils 3.7 thou/uL (1.40-6.50); %Basophils 1.4 % (0.0-1.0); %Eosinophils 2.4 % (0.0-10.0); %Lymphocytes 17.6 % (21.0-51.0); %Monocytes 13.3 % (0.0-10.0); %Neutrophils 65.2 % (42.0-75.0); Hemoglobin 14.2 g/dL (14.0-18.0); Mean Corpuscular HGB CONC 31.8 g/dL (32.0-36.0); Mean Corpuscular Hemoglobin 30.3 pg (27.0-31.0); Mean Corpuscular Volume 95.2 fl (78.0-98.0); Mean Platelet Volume 6.4 fL (7.4-10.4); Platelet Count 295 10x3/uL (130-400); RBC Distribution Width 13.5 % (11.5-14.5); Red Blood Cell (RBC) Count 4.68 mill/uL (4.70-6.10); White Blood Cell (WBC) Count 5.6 10x3/uL (4.8-10.8)
[2022-11-02 12:10] LABS: ALT (SGPT) 19 U/L (8-55); AST (SGOT) 36 U/L (5-34); Albumin 3.2 g/dL (3.4-4.8); Alkaline Phosphatase 136 U/L (40-110); Anion Gap 13 mmol/L (10-20); BUN (Urea Nitrogen) 7 mg/dL (8.4-25.7); Calc. Creatinine Clearance 0 mL/min (70-130); Calcium 8.5 mg/dL (7.8-10.44); Carbon Dioxide 24 mmol/L (23-31); Chloride 103 mmol/L (98-107); Estimated GFR 105; Globulin 4.5 g/dL (2.4-3.5); Glucose 90 mg/dL (80-115); Lipase 13 U/L (8-78); Potassium 4.1 mmol/L (3.5-5.1); Protein, Total 7.7 g/dL (5.8-8.1); Sodium 136 mmol/L (136-145)
[2022-11-02] MEDS ORDERED: Ondansetron PF 4 MG/2 ML Vial ONE (12:16)
[2022-11-02] MEDS ORDERED: Morphine 4 MG/ML VIAL ONE (12:16)
[2022-11-02 12:23] LABS: INR-International Normal Ratio 1.2; Prothrombin Time 15.4 sec (12.0-14.7)
[2022-11-02 12:24] LABS: PTT 33.1 sec (22.9-36.1)
[2022-11-02 19:20] LABS: RBC Count-Automated (BF) 642 /cu.mm; WBC/Nucleated-Auto (BF) 90 /cu.mm
[2022-11-02 19:41] LABS: Fluid, Protein 1.7 g/dL (Not Available)
[2022-11-02 20:13] LABS: Body Fluid Source Ascites Body Fluid; Tube # EDTA
[2022-11-02 20:14] LABS: BF Color Yellow; Clarity Clear (Clear)
[2022-11-02 20:16] LABS: BF Segmented Neutrophils 19 %; Cell Count Non Hematic 61 %; Lymphocytes 20 %
== END 2022-11-02 15:11 | disposition home or self-care (01) ==
LOC: ERS 10:28
DX: R18.8 Other ascites (principal); F17.210 Nicotine dependence, cigarettes, uncomplicated
CPT/HCPCS: 36415; 49083; 71045; 76705; 80053; 82945; 83690; 84157; 85025; 85060; 85610; 85730; 87070; 87205; 89051; 96374; 96375; J2270; J2405

== ENCOUNTER 2023-01-12 11:54 | Emergency (ER) | payer SELFPAY ==
[2023-01-12 12:34] LABS: #Basophils 0.1 thou/uL (0.0-0.2); #Eosinphils 0.2 thou/uL (0.0-0.7); #Lymphocytes 1.2 thou/uL (1.20-3.40); %Basophils 1.1 % (0.0-1.0); %Eosinophils 2.3 % (0.0-10.0); %Lymphocytes 16.5 % (21.0-51.0); %Monocytes 13.4 % (0.0-10.0); %Neutrophils 66.7 % (42.0-75.0); Hemoglobin 14.1 g/dL (14.0-18.0); Mean Corpuscular HGB CONC 33.2 g/dL (32.0-36.0); Mean Corpuscular Hemoglobin 30.8 pg (27.0-31.0); Mean Corpuscular Volume 92.7 fl (78.0-98.0); Mean Platelet Volume 6.3 fL (7.4-10.4); Platelet Count 240 10x3/uL (130-400); RBC Distribution Width 13.2 % (11.5-14.5); Red Blood Cell (RBC) Count 4.59 mill/uL (4.70-6.10); White Blood Cell (WBC) Count 7.5 10x3/uL (4.8-10.8)
[2023-01-12 12:54] LABS: ALT (SGPT) 8 U/L (8-55); AST (SGOT) 27 U/L (5-34); Albumin 3.5 g/dL (3.4-4.8); Alkaline Phosphatase 101 U/L (40-110); Anion Gap 13 mmol/L (10-20); BUN (Urea Nitrogen) 8 mg/dL (8.4-25.7); Bilirubin, Total 0.7 mg/dL (0.2-1.2); Calc. Creatinine Clearance 0 mL/min (70-130); Calcium 9.1 mg/dL (7.8-10.44); Carbon Dioxide 27 mmol/L (23-31); Chloride 100 mmol/L (98-107); Estimated GFR 98; Globulin 4.4 g/dL (2.4-3.5); Glucose 77 mg/dL (80-115); Potassium 4.1 mmol/L (3.5-5.1); Protein, Total 7.9 g/dL (5.8-8.1); Sodium 136 mmol/L (136-145)
[2023-01-12 14:27] LABS: RBC Count-Automated (BF) 187 /cu.mm; WBC/Nucleated-Auto (BF) 187 /cu.mm
[2023-01-12 14:53] LABS: BF Color Yellow; Body Fluid Source Ascites Body Fluid; Clarity Clear (Clear); Tube # CSF TUBE
[2023-01-12 14:55] LABS: BF Segmented Neutrophils 21 %; Cell Count Non Hematic 55 %; Lymphocytes 23 %
== END 2023-01-12 15:20 | disposition home or self-care (01) ==
LOC: ERS 11:54
DX: R18.8 Other ascites (principal); K70.30 Alcoholic cirrhosis of liver without ascites; F17.210 Nicotine dependence, cigarettes, uncomplicated
CPT/HCPCS: 36415; 49083; 80053; 85025; 85060; 87070; 87205; 89051

== ENCOUNTER 2023-02-21 10:29 | Emergency (ER) | payer SELFPAY ==
[2023-02-21 11:12] LABS: #Basophils 0.1 thou/uL (0.0-0.2); #Eosinphils 0.2 thou/uL (0.0-0.7); #Monocytes 1.3 thou/uL (0.11-0.59); #Neutrophils 4.2 thou/uL (1.40-6.50); %Basophils 1.5 % (0.0-1.0); %Eosinophils 2.3 % (0.0-10.0); %Lymphocytes 16.4 % (21.0-51.0); %Monocytes 18.6 % (0.0-10.0); %Neutrophils 60.6 % (42.0-75.0); Hemoglobin 13.3 g/dL (14.0-18.0); Mean Corpuscular HGB CONC 32.8 g/dL (32.0-36.0); Mean Corpuscular Volume 91.6 fl (78.0-98.0); Mean Platelet Volume 8.2 fL (7.4-10.4); Platelet Count 256 10x3/uL (130-400); RBC Distribution Width 15.1 % (11.5-14.5); Red Blood Cell (RBC) Count 4.43 mill/uL (4.70-6.10); White Blood Cell (WBC) Count 6.8 10x3/uL (4.8-10.8)
[2023-02-21 11:46] LABS: ALT (SGPT) 10 U/L (8-55); AST (SGOT) 25 U/L (5-34); Albumin 3.4 g/dL (3.4-4.8); Alkaline Phosphatase 98 U/L (40-110); Anion Gap 12 mmol/L (10-20); BUN (Urea Nitrogen) 7 mg/dL (8.4-25.7); Bilirubin, Total 0.8 mg/dL (0.2-1.2); Calc. Creatinine Clearance 0 mL/min (70-130); Calcium 9.2 mg/dL (7.8-10.44); Carbon Dioxide 26 mmol/L (23-31); Chloride 101 mmol/L (98-107); Estimated GFR 100; Globulin 4.1 g/dL (2.4-3.5); Glucose 78 mg/dL (80-115); Lipase 15 U/L (8-78); Protein, Total 7.5 g/dL (5.8-8.1); Sodium 135 mmol/L (136-145)
== END 2023-02-21 13:48 | disposition home or self-care (01) ==
LOC: ERS 10:29
DX: R18.8 Other ascites (principal); F17.210 Nicotine dependence, cigarettes, uncomplicated
CPT/HCPCS: 36415; 49082; 80053; 83690; 85025

== ENCOUNTER 2023-03-20 09:07 | Emergency (ER) | payer SELFPAY ==
[2023-03-20 09:49] LABS: #Basophils 0.1 thou/uL (0.0-0.2); #Eosinphils 0.3 thou/uL (0.0-0.7); #Monocytes 1.5 thou/uL (0.11-0.59); #Neutrophils 5.8 thou/uL (1.40-6.50); %Basophils 1.4 % (0.0-1.0); %Eosinophils 2.8 % (0.0-10.0); %Lymphocytes 12.8 % (21.0-51.0); %Monocytes 16.9 % (0.0-10.0); %Neutrophils 65.6 % (42.0-75.0); Hemoglobin 13.7 g/dL (14.0-18.0); Mean Corpuscular HGB CONC 33.7 g/dL (32.0-36.0); Mean Corpuscular Hemoglobin 30.1 pg (27.0-31.0); Mean Corpuscular Volume 89.2 fl (78.0-98.0); Mean Platelet Volume 7.9 fL (7.4-10.4); Platelet Count 245 10x3/uL (130-400); RBC Distribution Width 14.2 % (11.5-14.5); Red Blood Cell (RBC) Count 4.55 mill/uL (4.70-6.10); White Blood Cell (WBC) Count 8.8 10x3/uL (4.8-10.8)
[2023-03-20 10:11] LABS: ALT (SGPT) 13 U/L (8-55); AST (SGOT) 26 U/L (5-34); Albumin 3.1 g/dL (3.4-4.8); Alkaline Phosphatase 131 U/L (40-110); Anion Gap 12 mmol/L (10-20); BUN (Urea Nitrogen) 12 mg/dL (8.4-25.7); Bilirubin, Total 0.6 mg/dL (0.2-1.2); Calc. Creatinine Clearance 0 mL/min (70-130); Calcium 9.1 mg/dL (7.8-10.44); Carbon Dioxide 28 mmol/L (23-31); Chloride 98 mmol/L (98-107); Estimated GFR 100; Globulin 4.2 g/dL (2.4-3.5); Glucose 96 mg/dL (80-115); Lipase 39 U/L (8-78); Potassium 4.5 mmol/L (3.5-5.1); Protein, Total 7.3 g/dL (5.8-8.1); Sodium 133 mmol/L (136-145)
[2023-03-20 10:31] LABS: INR-International Normal Ratio 1.2
[2023-03-20 10:32] LABS: PTT 37.2 sec (22.9-36.1)
[2023-03-20] MEDS ORDERED: Sodium Bicarbonate 2.5 MEQ/5 ML VIAL ONE (14:49)
[2023-03-20] MEDS ORDERED: Lidocaine 1% PF 5 ML VIAL ONE (14:49)
== END 2023-03-20 13:11 | disposition home or self-care (01) ==
LOC: ERS 09:07
DX: R18.8 Other ascites (principal); F17.210 Nicotine dependence, cigarettes, uncomplicated
CPT/HCPCS: 36415; 49083; 76705; 80053; 83690; 85025; 85610; 85730; 94760

== ENCOUNTER 2023-04-10 09:04 | Emergency (ER) | payer SELFPAY ==
[2023-04-10] MEDS ORDERED: Lidocaine 1% PF 5 ML VIAL ONE (10:05)
== END 2023-04-10 10:46 | disposition home or self-care (01) ==
LOC: ERS 09:04
DX: R18.8 Other ascites (principal); F17.210 Nicotine dependence, cigarettes, uncomplicated
CPT/HCPCS: 49082

== ENCOUNTER 2023-04-24 08:34 | Emergency (ER) | payer SELFPAY ==
[2023-04-24 09:15] LABS: #Basophils 0.1 thou/uL (0.0-0.2); #Eosinphils 0.2 thou/uL (0.0-0.7); #Monocytes 1.6 thou/uL (0.11-0.59); #Neutrophils 6.1 thou/uL (1.40-6.50); %Basophils 1.1 % (0.0-1.0); %Lymphocytes 10.6 % (21.0-51.0); %Monocytes 17.7 % (0.0-10.0); Hematocrit 40.8 % (42.0-52.0); Mean Corpuscular HGB CONC 31.9 g/dL (32.0-36.0); Mean Corpuscular Hemoglobin 28.8 pg (27.0-31.0); Mean Corpuscular Volume 90.5 fl (78.0-98.0); Mean Platelet Volume 7.9 fL (7.4-10.4); Platelet Count 310 10x3/uL (130-400); RBC Distribution Width 13.4 % (11.5-14.5); Red Blood Cell (RBC) Count 4.51 mill/uL (4.70-6.10)
[2023-04-24 10:19] LABS: Albumin 2.9 g/dL (3.4-4.8); Anion Gap 11 mmol/L (10-20); BUN (Urea Nitrogen) 11 mg/dL (8.4-25.7); Bilirubin, Total 0.4 mg/dL (0.2-1.2); Calc. Creatinine Clearance 0 mL/min (70-130); Calcium 9.1 mg/dL (7.6-10.4); Carbon Dioxide 26 mmol/L (23-31); Chloride 99 mmol/L (98-107); Estimated GFR 97; Globulin 4.6 g/dL (2.4-3.5); Glucose 124 mg/dL (80-115); Potassium 5.3 mmol/L (3.5-5.1); Protein, Total 7.5 g/dL (5.8-8.1); Sodium 131 mmol/L (136-145)
[2023-04-24 10:20] LABS: ALT (SGPT) 16 U/L (8-55); AST (SGOT) 32 U/L (5-34); Alkaline Phosphatase 171 U/L (40-110)
[2023-04-24] MEDS ORDERED: Ketorolac Tromethamine 30 MG/ML VIAL ONE (11:21)
[2023-04-24 13:16] LABS: INR-International Normal Ratio 1.2
[2023-04-24] MEDS ORDERED: Lidocaine 1% PF 5 ML VIAL ONE (14:43)
== END 2023-04-24 15:55 | disposition home or self-care (01) ==
LOC: ERS 08:34
DX: R18.8 Other ascites (principal); F17.210 Nicotine dependence, cigarettes, uncomplicated
CPT/HCPCS: 36415; 49083; 71045; 80053; 85025; 85610; 96372; J1885

== ENCOUNTER 2023-05-02 10:12 | Emergency (ER) | payer SELFPAY | END 2023-05-02 11:45 | disposition home or self-care (01) | LOC: ERS 10:12 | DX: K70.30 Alcoholic cirrhosis of liver without ascites (principal); F17.210 Nicotine dependence, cigarettes, uncomplicated | CPT/HCPCS: 49083 ==

== ENCOUNTER 2023-05-11 09:31 | Emergency (ER) | payer SELFPAY ==
[2023-05-11] MEDS ORDERED: Lidocaine 1% PF 5 ML VIAL ONE (11:06)
[2023-05-11 11:10] LABS: #Basophils 0.1 thou/uL (0.0-0.2); #Eosinphils 0.3 thou/uL (0.0-0.7); #Monocytes 1.6 thou/uL (0.11-0.59); #Neutrophils 5.8 thou/uL (1.40-6.50); %Basophils 1.1 % (0.0-1.0); %Eosinophils 3.8 % (0.0-10.0); %Lymphocytes 10.5 % (21.0-51.0); %Monocytes 18.4 % (0.0-10.0); %Neutrophils 65.7 % (42.0-75.0); Hematocrit 37.5 % (42.0-52.0); Hemoglobin 12.2 g/dL (14.0-18.0); Mean Corpuscular HGB CONC 32.5 g/dL (32.0-36.0); Mean Corpuscular Hemoglobin 27.3 pg (27.0-31.0); Mean Corpuscular Volume 83.9 fl (78.0-98.0); Mean Platelet Volume 7.9 fL (7.4-10.4); Platelet Count 290 10x3/uL (130-400); RBC Distribution Width 13.8 % (11.5-14.5); Red Blood Cell (RBC) Count 4.47 mill/uL (4.70-6.10); White Blood Cell (WBC) Count 8.9 10x3/uL (4.8-10.8)
[2023-05-11 11:29] LABS: INR-International Normal Ratio 1.3; PTT 37.6 sec (22.9-36.1); Prothrombin Time 16.4 sec (12.0-14.7)
[2023-05-11 11:36] LABS: Troponin I 0.011 ng/mL (< 0.028)
[2023-05-11 11:38] LABS: ALT (SGPT) 16 U/L (8-55); AST (SGOT) 31 U/L (5-34); Albumin 2.5 g/dL (3.4-4.8); Alkaline Phosphatase 163 U/L (40-110); Anion Gap 10 mmol/L (10-20); BUN (Urea Nitrogen) 15 mg/dL (8.4-25.7); Bilirubin, Total 0.3 mg/dL (0.2-1.2); Calc. Creatinine Clearance 0 mL/min (70-130); Calcium 8.7 mg/dL (7.8-10.44); Carbon Dioxide 28 mmol/L (23-31); Chloride 96 mmol/L (98-107); Estimated GFR 100; Globulin 4.5 g/dL (2.4-3.5); Glucose 90 mg/dL (80-115); Potassium 3.9 mmol/L (3.5-5.1); Sodium 130 mmol/L (136-145)
[2023-05-11] MEDS ORDERED: Albumin 25% 25 GM/100 ML BOT IVPB SCH (12:15)
== END 2023-05-11 13:19 | disposition home or self-care (01) ==
LOC: ERS 09:31
DX: K74.60 Unspecified cirrhosis of liver (principal); R18.8 Other ascites; E87.1 Hypo-osmolality and hyponatremia; F17.210 Nicotine dependence, cigarettes, uncomplicated
CPT/HCPCS: 36415; 49083; 71045; 80053; 83880; 84484; 85025; 85610; 85730; 93005; 96365; P9047

== ENCOUNTER 2023-05-23 08:28 | Emergency (ER) | payer SELFPAY ==
[2023-05-23 09:17] LABS: #Basophils 0.1 thou/uL (0.0-0.2); #Eosinphils 0.2 thou/uL (0.0-0.7); #Monocytes 1.3 thou/uL (0.11-0.59); #Neutrophils 5.6 thou/uL (1.40-6.50); %Basophils 1.1 % (0.0-1.0); %Eosinophils 2.5 % (0.0-10.0); %Lymphocytes 9.9 % (21.0-51.0); %Monocytes 16.1 % (0.0-10.0); Hematocrit 37.8 % (42.0-52.0); Hemoglobin 12.1 g/dL (14.0-18.0); Mean Corpuscular Hemoglobin 27.3 pg (27.0-31.0); Mean Corpuscular Volume 85.1 fl (78.0-98.0); Mean Platelet Volume 7.9 fL (7.4-10.4); Platelet Count 323 10x3/uL (130-400); RBC Distribution Width 14.6 % (11.5-14.5); Red Blood Cell (RBC) Count 4.44 mill/uL (4.70-6.10)
[2023-05-23 09:42] LABS: ALT (SGPT) 16 U/L (8-55); AST (SGOT) 32 U/L (5-34); Albumin 2.7 g/dL (3.4-4.8); Alkaline Phosphatase 149 U/L (40-110); Anion Gap 10 mmol/L (10-20); BUN (Urea Nitrogen) 13 mg/dL (8.4-25.7); Bilirubin, Total 0.5 mg/dL (0.2-1.2); Calc. Creatinine Clearance 0 mL/min (70-130); Calcium 8.8 mg/dL (7.8-10.44); Carbon Dioxide 32 mmol/L (23-31); Chloride 93 mmol/L (98-107); Estimated GFR 100; Globulin 4.4 g/dL (2.4-3.5); Glucose 101 mg/dL (80-115); Lipase 26 U/L (8-78); Potassium 4.4 mmol/L (3.5-5.1); Protein, Total 7.1 g/dL (5.8-8.1); Sodium 131 mmol/L (136-145)
[2023-05-23 10:05] LABS: INR-International Normal Ratio 1.4; PTT 37.3 sec (22.9-36.1); Prothrombin Time 17.5 sec (12.0-14.7)
[2023-05-23] MEDS ORDERED: Albumin 25% 25 GM/100 ML BOT IVPB SCH (10:15)
== END 2023-05-23 11:36 | disposition home or self-care (01) ==
LOC: ERS 08:28
DX: K70.31 Alcoholic cirrhosis of liver with ascites (principal); E88.09 Other disorders of plasma-protein metabolism, not elsewhere classified; F17.210 Nicotine dependence, cigarettes, uncomplicated
CPT/HCPCS: 36415; 49082; 80053; 83690; 85025; 85610; 85730; 87070; 87205; 96365; P9047

== ENCOUNTER 2023-07-02 09:20 | Emergency (ER) | payer SELFPAY ==
[2023-07-02 10:18] LABS: #Basophils 0.1 thou/uL (0.0-0.2); #Eosinphils 0.2 thou/uL (0.0-0.7); #Monocytes 1.3 thou/uL (0.11-0.59); #Neutrophils 6.1 thou/uL (1.40-6.50); %Basophils 1.1 % (0.0-1.0); %Eosinophils 2.1 % (0.0-10.0); %Lymphocytes 9.5 % (21.0-51.0); %Monocytes 14.8 % (0.0-10.0); %Neutrophils 71.9 % (42.0-75.0); Hematocrit 36.5 % (42.0-52.0); Hemoglobin 11.6 g/dL (14.0-18.0); Mean Corpuscular HGB CONC 31.8 g/dL (32.0-36.0); Mean Corpuscular Hemoglobin 25.9 pg (27.0-31.0); Mean Corpuscular Volume 81.5 fl (78.0-98.0); Platelet Count 344 10x3/uL (130-400); RBC Distribution Width 15.9 % (11.5-14.5); Red Blood Cell (RBC) Count 4.48 mill/uL (4.70-6.10); White Blood Cell (WBC) Count 8.5 10x3/uL (4.8-10.8)
[2023-07-02 10:47] LABS: ALT (SGPT) 14 U/L (8-55); AST (SGOT) 30 U/L (5-34); Albumin 2.7 g/dL (3.4-4.8); Alkaline Phosphatase 137 U/L (40-110); Anion Gap 13 mmol/L (10-20); BUN (Urea Nitrogen) 11 mg/dL (8.4-25.7); Bilirubin, Total 0.5 mg/dL (0.2-1.2); Calc. Creatinine Clearance 0 mL/min (70-130); Calcium 8.4 mg/dL (7.8-10.44); Carbon Dioxide 27 mmol/L (23-31); Chloride 99 mmol/L (98-107); Estimated GFR 100; Globulin 4.4 g/dL (2.4-3.5); Glucose 91 mg/dL (80-115); Magnesium 2.1 mg/dL (1.6-2.6); Potassium 4.2 mmol/L (3.5-5.1); Protein, Total 7.1 g/dL (5.8-8.1); Sodium 135 mmol/L (136-145)
[2023-07-02] MEDS ORDERED: Albumin 25% 25 GM/100 ML BOT IVPB SCH (13:00)
== END 2023-07-02 18:59 | disposition home or self-care (01) ==
LOC: ERS 09:20
DX: K70.31 Alcoholic cirrhosis of liver with ascites (principal); F17.290 Nicotine dependence, other tobacco product, uncomplicated
CPT/HCPCS: 36415; 49083; 80053; 83735; 85025; 87070; 87205; 96365; 96366; P9047

== ENCOUNTER 2023-07-18 09:34 | Emergency (ER) | payer SELFPAY ==
[2023-07-18 10:06] LABS: #Basophils 0.1 thou/uL (0.0-0.2); #Eosinphils 0.1 thou/uL (0.0-0.7); #Monocytes 1.1 thou/uL (0.11-0.59); #Neutrophils 6.4 thou/uL (1.40-6.50); %Basophils 1.2 % (0.0-1.0); %Eosinophils 1.4 % (0.0-10.0); %Lymphocytes 9.5 % (21.0-51.0); %Monocytes 13.2 % (0.0-10.0); %Neutrophils 74.2 % (42.0-75.0); Hematocrit 36.1 % (42.0-52.0); Hemoglobin 11.4 g/dL (14.0-18.0); Mean Corpuscular HGB CONC 31.6 g/dL (32.0-36.0); Mean Corpuscular Hemoglobin 25.2 pg (27.0-31.0); Mean Corpuscular Volume 79.9 fl (78.0-98.0); Mean Platelet Volume 8.3 fL (7.4-10.4); Platelet Count 293 10x3/uL (130-400); RBC Distribution Width 16.3 % (11.5-14.5); Red Blood Cell (RBC) Count 4.52 mill/uL (4.70-6.10); White Blood Cell (WBC) Count 8.6 10x3/uL (4.8-10.8)
[2023-07-18 10:20] LABS: INR-International Normal Ratio 1.2; Prothrombin Time 16.2 sec (12.0-14.7)
[2023-07-18 10:21] LABS: PTT 39.8 sec (22.9-36.1)
[2023-07-18 10:30] LABS: ALT (SGPT) 15 U/L (8-55); AST (SGOT) 28 U/L (5-34); Albumin 2.8 g/dL (3.4-4.8); Alkaline Phosphatase 159 U/L (40-110); Anion Gap 10 mmol/L (10-20); BUN (Urea Nitrogen) 10 mg/dL (8.4-25.7); Bilirubin, Total 0.4 mg/dL (0.2-1.2); Calc. Creatinine Clearance 0 mL/min (70-130); Calcium 8.4 mg/dL (7.8-10.44); Carbon Dioxide 27 mmol/L (23-31); Chloride 100 mmol/L (98-107); Estimated GFR 100; Globulin 4.6 g/dL (2.4-3.5); Glucose 116 mg/dL (80-115); Protein, Total 7.4 g/dL (5.8-8.1); Sodium 133 mmol/L (136-145)
[2023-07-18 10:34] LABS: Troponin I Less than 0.010 ng/mL (< 0.028)
[2023-07-18] MEDS ORDERED: Lidocaine 1% w/Epinephrine 1:100K 20 ML VIAL ONE (11:35)
[2023-07-18] MEDS ORDERED: Albumin 25% 25 GM/100 ML BOT IVPB SCH (12:30)
== END 2023-07-18 13:21 | disposition home or self-care (01) ==
LOC: ERS 09:34
DX: R18.8 Other ascites (principal); E87.70 Fluid overload, unspecified; F17.210 Nicotine dependence, cigarettes, uncomplicated
CPT/HCPCS: 36415; 49083; 80053; 83880; 84484; 85025; 85610; 85730; 93005; 96365; P9047